=== PATIENT | male | born 1945 | race Caucasian/White ===

== ENCOUNTER 2020-08-18 14:52 | Emergency (ER) | payer SELFPAY ==
[~2020-08-18] VITALS: Ht 188 cm; Wt 99.8 kg
--- NOTE | 2020-08-18 14:52 | NUR ---
1450---Patient BIBA ALS accompanied by FD with CPR in progress, transferred to bed 10. Dr. Simon, RT and RN are evaluating the patient at bedside.
--- NOTE | 2020-08-18 14:52 | NUR ---
(4480) PT BIBA AFTER WITNESSED COLLAPSE 40 MIN PRIOR. PT ARRIVES WITH CPR IN PROGRESS, ASYSTOLE ON MONITOR, PT BEING BAGGED WITH AMBU BAG. SEE CODE BLUE SHEET.
--- NOTE | 2020-08-18 15:20 | NUR ---
CALLED MEDIA MARKETING SPECIALIST TO REPORT , ANTICIPATING CALL BACK.
--- NOTE | 2020-08-18 15:41 | NUR ---
MOON ON SCENE IN [facility] GAVE WIFES NUMBER [facility]RA --
--- NOTE | 2020-08-18 16:02 | NUR ---
CALLED [facility], GIVEN REFERRAL # [phone]
--- NOTE | 2020-08-18 19:30 | NUR ---
RECEIVED REPORT FROM ALEXANDRO PATRICIO FOR CONTINUATION OF CARE AT THIS TIME.
--- NOTE | 2020-08-18 19:30 | NUR ---
report given to ALEXANDRO Anaya.
--- NOTE | 2020-08-18 19:38 | NUR ---
spoke to ride mechanic, ride mechanic stated that body can be taken to morgue. stated they will call back to find out more medical history on the pt after we speak with family, stated to keep pts chart. suyapa gave [facility] number to give to for her request to donate body to [facility]. . ( )
--- NOTE | 2020-08-18 20:05 | NUR ---
SPOKE WITH THE PTS TYRA- SHE STATED THAT THE PT HAD A PMH OF ELEVATED CHOLESTEROL AND SYNCOPE ALONG WITH A FAMILY HISTORY OF CARDIAC DISORDERS. I ALSO GAVE TYRA THE NUMBER FOR [facility] IN ORDER FOR HER TO CALL THEM REGARDING DONATING THE PTS BODY TO [facility].
--- NOTE | 2020-08-18 20:23 | NUR ---
Spoke with [facility] to update them on, notified them that the per next of kin Heather the pt wanted his body to be donated to [facility].
--- NOTE | 2020-08-18 21:41 | NUR ---
PER KENDALL FROM [facility], THEY WOULD LIKE BE NOTIFIED ON THE TIME AND LOCATION OF WHEN THE BODY IS MOVED TO THE [facility]
--- NOTE | 2020-08-18 22:09 | NUR ---
Spoke w/ Livier from Workforce Planning Analyst's office - no reference number available at this time, pending more information regarding patient's . Incident # [id number]. Per Livier, body is okay [place] [facility] [place].
--- NOTE | 2020-08-18 23:25 | NUR ---
SPOKE WITH JOMAR FROM [facility], SHE STATED THAT THEY NO LONGER WANT TO PURSUE THE BODY AND WILL NO LONGER BE INVOLVED IN THE CASE OF THIS PT.
--- NOTE | 2020-08-18 23:58 | NUR ---
SPOKE WITH SKIP PETERSEN FROM THE BENDING SHED WORKER'S OFFICE, SHE STATED THAT SHE NEEDS THE PTS PRIMARY CARE PHYSICIAN INFORMATION PRIOR TO RELEASING THE BODY.
--- NOTE | 2020-08-19 00:15 | NUR ---
CALLED TYRA TO OBTAIN PTS PCP INFORMATION- SHE IS UNABLE TO PROVIDE IT FOR ME AT THIS TIME SHE IS DISTRESSED AND UPSET. SHE STATED SHE WILL CALL ME BACK WITH THE PCP INFORMATION. SHE WAS MADE AWARE THAT THE TRANSPLANT CASE MANAGER'S OFFICE NEEDED IT IN ORDER TO PROCEED WITH APPROPRIATE CARE OF THE BODY.
--- NOTE | 2020-08-19 00:34 | NUR ---
SPOKE WITH SKIP DAVID FROM THE PRINCIPAL TECHNICAL SPECIALIST'S OFFICE IN ORDER TO PROVIDE HER WITH SOME MORE INFORMATION ON THE PT IN ORDER TO RECEIVE A REPORT #. SHE STILL NEEDS PTS PCP INFORMATION.
--- NOTE | 2020-08-19 00:50 | NUR ---
CALLED [facility] IN ORDER TO OBTAIN A RUN SHEET FOR THIS PT BECAUSE PER SKIP FROM THE PAINT RO[employer]ER COVERS SUPERVISOR'S OFFICE SHE CANNOT RELEASE THE BODY UNTIL SHE OBTAIN THE PCP INFORMATION AND RUN SHEET
--- NOTE | 2020-08-19 01:05 | NUR ---
CALLED [facility] [phone] IN ORDER TO OBTAIN A RUN SHEET, [facility] PROVIDED ME WITH NUMBER [id number]. [facility] WILL FAX OVER RUN SHEET
--- NOTE | 2020-08-19 01:20 | NUR ---
SPOKE WITH [facility] ASSISTANT AUTO CENTER MANAGER-EMAILED CHARGE NURSE NABIL WITH THE RUN SHEET.
--- NOTE | 2020-08-19 01:30 | NUR ---
RUN SHEET FAXED TO [facility] DEVELOPER'S OFFICE ATTN SKIP PETERSEN
--- NOTE | 2020-08-19 01:35 | NUR ---
PT BODY MOVED TO [facility]IDE [facility].
--- NOTE | 2020-08-19 02:00 | NUR ---
PER SKIP PETERSEN AT THE ANIMAL CONTROL OFFICER'S OFFICE, THE BODY IS BEING RELEASED. REPORT NUMBER [id number]
--- NOTE | 2020-08-19 07:03 | NUR ---
CALLED [facility] AND SPOKE WITH LOREN TO NOTIFY THE PHYSICIAN CAROLANN NEIL OF THE TIME OF OF THE PT -[facility] DR WILL CALL BACK CONFIRMING THAT THEY ARE AWARE OF THE OF THE PT
== END 2020-08-18 15:00 ==
LOC: MED 14:52
DX: I46.9 Cardiac arrest, cause unspecified (principal)
CPT/HCPCS: 31500; 92950; 99285